=== PATIENT | male | born 2000 | race Hispanic/Latino ===

== ENCOUNTER 2022-08-10 19:54 | Emergency (ER) | payer SELFPAY ==
[2022-08-10] MEDS ORDERED: Ketorolac Tromethamine 30 MG/ML VIAL ONE (20:12)
[2022-08-10] MEDS ORDERED: Dexamethasone 10 MG/ML VIAL ONE (20:20)
== END 2022-08-10 21:34 | disposition home or self-care (01) ==
LOC: ERS 19:54
DX: K08.89 Other specified disorders of teeth and supporting structures (principal)
CPT/HCPCS: 96372; 99282; J1100; J1885

== ENCOUNTER 2022-08-12 17:10 | Emergency (ER) | payer SELFPAY | END 2022-08-12 18:21 | disposition left against medical advice (07) | LOC: ERS 17:10 | DX: Z53.29 Procedure and treatment not carried out because of patient's decision for other reasons (principal) ==